=== PATIENT | female | born 1990 | race Caucasian/White ===

== ENCOUNTER 2023-12-22 14:30 | Day surgery (SDC) | payer BC ==
[2023-12-22 15:08] VITALS: BMI 36.1
[2023-12-22 15:51] LABS: Fetal Membranes Rupture No Membranes Rupture (No Rupture)
== END 2023-12-22 16:01 | disposition home or self-care (01) ==
LOC: CSHLD/OP 14:30
PROVIDERS: ATTEND Student in an Organized Health Care Education/Training Program
DX: Z03.71 Encounter for suspected problem with amniotic cavity and membrane ruled out (principal); O99.343 Other mental disorders complicating pregnancy, third trimester; F41.9 Anxiety disorder, unspecified; F32.A Depression, unspecified; Z79.899 Other long term (current) drug therapy; Z79.82 Long term (current) use of aspirin; Z3A.31 31 weeks gestation of pregnancy
CPT/HCPCS: 84112; 87480; 87510; 87660; 99285